=== PATIENT | male | born 1950 | race Caucasian/White ===

== ENCOUNTER 2017-05-01 10:34 | Outpatient (CLI) | payer MEDICARE ==
[2017-05-01 13:44] LABS: ALBUMIN/GLOBULIN RATIO 1.4 (1.0-2.2); BILIRUBIN,TOTAL 0.9 mg/dL (0.2-1.0); BUN - BLOOD UREA NITROGEN 21 mg/dL (6-20); CALCIUM 9.3 mg/dL (8.5-10.3); CARBON DIOXIDE - CO2 24 mmol/L (21-32); CHLORIDE 105 mmol/L (101-111); CHOL/HDL RATIO 4.1 (<5.0); CHOLESTEROL 189 mg/dL; CREATININE 1.1 mg/dL (0.6-1.2); GFR - MDRD 67 (>89); GLUCOSE 129 mg/dL (70-100); HDL CHOLESTEROL 46 mg/dL; LDL/HDL RATIO 1.5 (<3.6); SODIUM 138 mmol/L (135-145); TOTAL PROTEIN 6.8 g/dL (6.7-8.2); TRIGLYCERIDES 359 mg/dL; URIC ACID 5.6 mg/dL (2.6-7.2); VLDL CHOLESTEROL 72 mg/dL
[2017-05-01 14:16] LABS: HEMOGLOBIN A1C 0.69 g/dL
== END 2017-05-01 10:35 | disposition home or self-care (01) ==
LOC: LAB.WCP 10:34
PROVIDERS: ATTEND Family Medicine
DX: E79.0 Hyperuricemia without signs of inflammatory arthritis and tophaceous disease (principal); I10 Essential (primary) hypertension; R73.09 Other abnormal glucose
CPT/HCPCS: 36415; 80053; 80061; 82043; 83036; 84443; 84550

== ENCOUNTER 2017-12-05 08:00 | Outpatient (CLI) | payer MEDICARE ==
[2017-12-05 12:49] LABS: ALBUMIN 4.2 g/dL (3.2-5.5); ALBUMIN/GLOBULIN RATIO 1.6 (1.0-2.2); BILIRUBIN,TOTAL 0.8 mg/dL (0.2-1.0); CALCIUM 9.1 mg/dL (8.5-10.3); CREATININE 1.1 mg/dL (0.6-1.2); TOTAL PROTEIN 6.9 g/dL (6.7-8.2); URIC ACID 5.5 mg/dL (2.6-7.2)
[2017-12-05 12:56] LABS: HB2 TOTAL 16.4 g/dL; HEMOGLOBIN A1C 0.72 g/dL; HEMOGLOBIN A1C % 6.2 % (4.6-6.2)
== END 2017-12-05 08:01 | disposition home or self-care (01) ==
LOC: LAB.WCP 08:00
PROVIDERS: ATTEND Family Medicine
DX: E11.9 Type 2 diabetes mellitus without complications (principal); M25.561 Pain in right knee; E79.0 Hyperuricemia without signs of inflammatory arthritis and tophaceous disease; I10 Essential (primary) hypertension
CPT/HCPCS: 36415; 80053; 83036; 84550

== ENCOUNTER 2018-11-25 09:10 | Outpatient (CLI) | payer MEDICARE, OTHER ==
[2018-11-25 14:06] LABS: BASOPHILS % (AUTO) 0.7 %; EOSINOPHILS # (AUTO) 0.2 10^3/uL (0.0-0.7); EOSINOPHILS % (AUTO) 3.4 %; HGB - HEMOGLOBIN 14.8 g/dL (14.0-18.0); LYMPHOCYTES # (AUTO) 2.1 10^3/uL (1.5-3.5); LYMPHOCYTES % (AUTO) 30.9 %; MEAN CORPUSCULAR HEMOGLOBIN 30.5 pg (27.0-31.0); MEAN CORPUSCULAR HGB CONC 34.1 g/dL (32.0-36.0); MEAN CORPUSCULAR VOLUME 89.3 fL (80.0-94.0); MEAN PLATELET VOLUME 8.7 fL (7.4-11.4); MONOCYTES # (AUTO) 0.6 10^3/uL (0.0-1.0); MONOCYTES % (AUTO) 9.3 %; NEUTROPHILS # (AUTO) 3.7 10^3/uL (1.5-6.6); NEUTROPHILS % (AUTO) 55.7 %; PLT - PLATELET COUNT 198 10^3/uL (130-450); RED BLOOD COUNT 4.87 10^6/uL (4.70-6.10); RED CELL DISTRIBUTION WIDTH 14.4 % (12.0-15.0); WHITE BLOOD COUNT 6.7 x10^3/uL (4.8-10.8)
[2018-11-25 15:05] LABS: ALBUMIN 3.9 g/dL (3.2-5.5); ALBUMIN/GLOBULIN RATIO 1.3 (1.0-2.2); ALKALINE PHOSPHATASE 64 IU/L (42-121); ALT ALANINE AMINOTRANSFERASE 27 IU/L (10-60); AST ASPARTATE AMINOTRANSFERASE 28 IU/L (10-42); BILIRUBIN,TOTAL 0.8 mg/dL (0.2-1.0); BUN - BLOOD UREA NITROGEN 27 mg/dL (6-20); CALCIUM 9.1 mg/dL (8.5-10.3); CARBON DIOXIDE - CO2 26 mmol/L (21-32); CHLORIDE 100 mmol/L (101-111); CHOL/HDL RATIO 4.3 (<5.0); CHOLESTEROL 205 mg/dL; CREATININE 1.1 mg/dL (0.6-1.2); GFR - MDRD 67 (>89); GLUCOSE 133 mg/dL (70-100); HDL CHOLESTEROL 48 mg/dL; LDL CHOLESTEROL,CALCULATED 89 mg/dL; LDL/HDL RATIO 1.9 (<3.6); SODIUM 135 mmol/L (135-145); TOTAL PROTEIN 6.8 g/dL (6.7-8.2); VLDL CHOLESTEROL 68 mg/dL
== END 2018-11-25 23:59 | disposition home or self-care (01) ==
LOC: LAB.WCP 09:10
PROVIDERS: ATTEND Family Medicine
DX: I10 Essential (primary) hypertension (principal); Z12.5 Encounter for screening for malignant neoplasm of prostate
CPT/HCPCS: 36415; 80053; 80061; 83721; 84443; 85025; G0103; 84153

== ENCOUNTER 2019-02-19 11:50 | Outpatient (CLI) | payer MEDICARE, OTHER ==
[2019-02-19 18:43] LABS: BASOPHILS # (AUTO) 0.1 10^3/uL (0.0-0.1); BASOPHILS % (AUTO) 0.6 %; EOSINOPHILS # (AUTO) 0.1 10^3/uL (0.0-0.7); EOSINOPHILS % (AUTO) 1.2 %; HGB - HEMOGLOBIN 15.8 g/dL (14.0-18.0); LYMPHOCYTES # (AUTO) 2.3 10^3/uL (1.5-3.5); MEAN CORPUSCULAR HEMOGLOBIN 28.1 pg (27.0-31.0); MEAN CORPUSCULAR HGB CONC 31.7 g/dL (32.0-36.0); MEAN CORPUSCULAR VOLUME 88.6 fL (80.0-94.0); MEAN PLATELET VOLUME 8.8 fL (7.4-11.4); MONOCYTES # (AUTO) 0.7 10^3/uL (0.0-1.0); MONOCYTES % (AUTO) 8.2 %; NEUTROPHILS # (AUTO) 5.8 10^3/uL (1.5-6.6); PLT - PLATELET COUNT 230 10^3/uL (130-450); RED BLOOD COUNT 5.62 10^6/uL (4.70-6.10); RED CELL DISTRIBUTION WIDTH 14.5 % (12.0-15.0)
[2019-02-19 19:37] LABS: ALBUMIN 4.1 g/dL (3.2-5.5); ALBUMIN/GLOBULIN RATIO 1.5 (1.0-2.2); BILIRUBIN,TOTAL 1.2 mg/dL (0.2-1.0); CALCIUM 9.9 mg/dL (8.5-10.3); CREATININE 1.3 mg/dL (0.6-1.2); TOTAL PROTEIN 6.9 g/dL (6.7-8.2)
[2019-02-19 20:40] LABS: HB2 TOTAL 17.2 g/dL; HEMOGLOBIN A1C 0.79 g/dL; HEMOGLOBIN A1C % 6.4 % (4.6-6.2)
== END 2019-02-19 23:59 | disposition home or self-care (01) ==
LOC: LAB.WCP 11:50
PROVIDERS: ATTEND Family Medicine
DX: I10 Essential (primary) hypertension (principal); E11.9 Type 2 diabetes mellitus without complications
CPT/HCPCS: 36415; 80053; 83036; 84443; 85025

== ENCOUNTER 2019-04-12 06:33 | Day surgery (SDC) | payer MEDICARE, OTHER ==
[2019-04-12] MEDS ORDERED: LACTATED RINGERS 1,000 ML IV ONE (07:21)
[2019-04-12] MEDS ORDERED: MIDAZOLAM 2 MG/2 ML VIAL IVP ONE (08:00)
[2019-04-12] MEDS ORDERED: fentaNYL 250 MCG/5 ML VIAL IVP ONE (08:00)
[2019-04-12 09:12] VITALS: BP 140/81
== END 2019-04-12 06:34 | disposition home or self-care (01) ==
LOC: SDS 06:33
PROVIDERS: ATTEND Surgery
PROC: 0DJD8ZZ Inspection of Lower Intestinal Tract, Via Natural or Artificial Opening Endoscopic (ICD-10-PCS; principal; 2019-04-12 08:15)
DX: Z12.11 Encounter for screening for malignant neoplasm of colon (principal); K57.30 Diverticulosis of large intestine without perforation or abscess without bleeding; K64.4 Residual hemorrhoidal skin tags; K64.8 Other hemorrhoids; E11.9 Type 2 diabetes mellitus without complications; I10 Essential (primary) hypertension; E78.5 Hyperlipidemia, unspecified; E79.0 Hyperuricemia without signs of inflammatory arthritis and tophaceous disease; N28.9 Disorder of kidney and ureter, unspecified; M51.36 Other intervertebral disc degeneration, lumbar region; M19.042 Primary osteoarthritis, left hand; M19.041 Primary osteoarthritis, right hand; Z79.84 Long term (current) use of oral hypoglycemic drugs; Z79.82 Long term (current) use of aspirin; Z87.891 Personal history of nicotine dependence; Z87.442 Personal history of urinary calculi
CPT/HCPCS: G0121; J3010; J7120

== ENCOUNTER → 2019-07-19 | Outpatient (CLI) | payer MEDICARE, OTHER ==
[2019-07-19 12:45] LABS: BASOPHILS # (AUTO) 0.1 10^3/uL (0.0-0.1); BASOPHILS % (AUTO) 0.7 %; EOSINOPHILS # (AUTO) 0.3 10^3/uL (0.0-0.7); EOSINOPHILS % (AUTO) 3.4 %; HGB - HEMOGLOBIN 14.5 g/dL (14.0-18.0); LYMPHOCYTES # (AUTO) 2.2 10^3/uL (1.5-3.5); LYMPHOCYTES % (AUTO) 29.4 %; MEAN CORPUSCULAR HEMOGLOBIN 28.5 pg (27.0-31.0); MEAN CORPUSCULAR HGB CONC 31.7 g/dL (32.0-36.0); MEAN CORPUSCULAR VOLUME 89.8 fL (80.0-94.0); MONOCYTES # (AUTO) 0.7 10^3/uL (0.0-1.0); MONOCYTES % (AUTO) 9.9 %; NEUTROPHILS # (AUTO) 4.2 10^3/uL (1.5-6.6); NEUTROPHILS % (AUTO) 56.1 %; PLT - PLATELET COUNT 184 10^3/uL (130-450); RED BLOOD COUNT 5.09 10^6/uL (4.70-6.10); RED CELL DISTRIBUTION WIDTH 17.2 % (12.0-15.0); WHITE BLOOD COUNT 7.5 x10^3/uL (4.8-10.8)
[2019-07-19 12:48] LABS: ALBUMIN 4.1 g/dL (3.2-5.5); ALBUMIN/GLOBULIN RATIO 1.3 (1.0-2.2); ALKALINE PHOSPHATASE 61 IU/L (42-121); ALT ALANINE AMINOTRANSFERASE 25 IU/L (10-60); AST ASPARTATE AMINOTRANSFERASE 24 IU/L (10-42); BILIRUBIN,TOTAL 0.9 mg/dL (0.2-1.0); BUN - BLOOD UREA NITROGEN 25 mg/dL (6-20); CALCIUM 9.2 mg/dL (8.5-10.3); CARBON DIOXIDE - CO2 25 mmol/L (21-32); CHLORIDE 104 mmol/L (101-111); CHOL/HDL RATIO 3.8 (<5.0); CHOLESTEROL 192 mg/dL; CREATININE 1.2 mg/dL (0.6-1.2); GFR - MDRD 60 (>89); GLUCOSE 130 mg/dL (70-100); HDL CHOLESTEROL 50 mg/dL; LDL CHOLESTEROL,CALCULATED 83 mg/dL; LDL/HDL RATIO 1.7 (<3.6); SODIUM 138 mmol/L (135-145); TOTAL PROTEIN 7.2 g/dL (6.7-8.2); VLDL CHOLESTEROL 59 mg/dL
[2019-07-19 12:59] LABS: HB2 TOTAL 15.7 g/dL; HEMOGLOBIN A1C 0.71 g/dL; HEMOGLOBIN A1C % 6.3 % (4.6-6.2)
[2019-07-19 13:00] LABS: CREATININE,URINE 126.1 mg/dL; MICROALBUM/CREATININE RATIO,UR 38.1 ug/mg (<30.0); MICROALBUMIN,URINE 4.8 mg/dL (0-300.0)
== END ==
LOC: LAB.WCP 08:00
PROVIDERS: ATTEND Family Medicine
DX: E11.9 Type 2 diabetes mellitus without complications (principal); E78.5 Hyperlipidemia, unspecified
CPT/HCPCS: 36415; 80053; 80061; 82043; 82570; 83036; 83721; 84443; 85025

== ENCOUNTER 2019-09-28 09:00 | Outpatient (CLI) | payer MEDICARE, OTHER ==
[2019-09-28 14:35] LABS: BILIRUBIN,URINE NEGATIVE (NEGATIVE); GLUCOSE, URINE (UA) NEGATIVE (NEGATIVE); KETONES,URINE (UA) NEGATIVE (NEGATIVE); LEUKOCYTE ESTERASE, URINE NEGATIVE (NEGATIVE); NITRITE,URINE NEGATIVE (NEGATIVE); OCCULT BLOOD,URINE MODERATE (NEGATIVE); PH,URINE 5.5 PH (5.0-7.5); PROTEIN,URINE NEGATIVE (NEGATIVE); UROBILINOGEN,URINE 0.2 (NORMAL) E.U./dL (NORMAL)
[2019-09-28 14:43] LABS: CLARITY,URINE CLEAR (CLEAR)
[2019-09-28 14:47] LABS: BACTERIA,URINE Rare /HPF (None Seen); RBC,URINE 0-5 /HPF (0-5); SQUAMOUS EPITHELIAL CELL,UR NONE SEEN (<= Few)
== END 2019-09-28 23:59 | disposition home or self-care (01) ==
LOC: LAB.R 09:00
PROVIDERS: ATTEND Physician Assistant
DX: R10.32 Left lower quadrant pain (principal)
CPT/HCPCS: 81001; 81003; 87086

== ENCOUNTER 2019-09-28 12:12 | Outpatient (CLI) | payer MEDICARE, OTHER ==
[2019-09-28 12:39] LABS: BASOPHILS # (AUTO) 0.1 10^3/uL (0.0-0.1); BASOPHILS % (AUTO) 0.5 %; EOSINOPHILS # (AUTO) 0.1 10^3/uL (0.0-0.7); EOSINOPHILS % (AUTO) 1.1 %; HGB - HEMOGLOBIN 14.8 g/dL (14.0-18.0); LYMPHOCYTES # (AUTO) 1.7 10^3/uL (1.5-3.5); LYMPHOCYTES % (AUTO) 16.2 %; MEAN CORPUSCULAR HEMOGLOBIN 30.9 pg (27.0-31.0); MEAN CORPUSCULAR HGB CONC 33.5 g/dL (32.0-36.0); MEAN CORPUSCULAR VOLUME 92.3 fL (80.0-94.0); MEAN PLATELET VOLUME 9.7 fL (7.4-11.4); MONOCYTES % (AUTO) 9.1 %; NEUTROPHILS # (AUTO) 7.7 10^3/uL (1.5-6.6); NEUTROPHILS % (AUTO) 72.5 %; PLT - PLATELET COUNT 191 10^3/uL (130-450); RED BLOOD COUNT 4.79 10^6/uL (4.70-6.10); RED CELL DISTRIBUTION WIDTH 12.8 % (12.0-15.0); WHITE BLOOD COUNT 10.6 x10^3/uL (4.8-10.8)
[2019-09-28 12:47] LABS: ALBUMIN 4.1 g/dL (3.2-5.5); ALBUMIN/GLOBULIN RATIO 1.2 (1.0-2.2); BILIRUBIN,TOTAL 1.2 mg/dL (0.2-1.0); CALCIUM 9.3 mg/dL (8.5-10.3); CREATININE 1.2 mg/dL (0.6-1.2); TOTAL PROTEIN 7.4 g/dL (6.7-8.2)
[2019-09-28] MEDS ORDERED: IOVERSOL 320 50 ML VIAL ONE (13:00)
[2019-09-28] MEDS ORDERED: IOVERSOL 320 100 ML VIAL IVP ONE ×2 (13:00→17:00)
--- NOTE | 2019-09-28 14:40 | CT Report ---
Reason: ABDOMINAL PAIN Procedure Date: 09/28/2019 Accession Number: [id number] / [id number] Procedure: CT - Abdomen/Pelvis W CPT Code: Addended Final Report FULL RESULT: EXAM: CT ABDOMEN AND PELVIS EXAM DATE: 09/28/2019 01:49 PM. CLINICAL HISTORY: ABDOMINAL PAIN. Left lower quadrant abdominal pain, concern for diverticulitis versus nephrolithiasis. COMPARISONS: CT ABD AND PELVIS W&WO CONTRAST 02/26/2013 11:43 AM. TECHNIQUE: Routine helical CT imaging was performed through the abdomen and pelvis. IV contrast: OPTI 320 100ML. Enteric contrast: No. Reconstructions: Coronal and sagittal. In accordance with CT protocol optimization, one or more of the following dose reduction techniques were utilized for this exam: automated exposure control, adjustment of mA and/or KV based on patient size, or use of iterative reconstructive technique. FINDINGS: Lung Bases: Unremarkable. Liver: There is diffuse low-attenuation of the liver. No masses. Gallbladder/Bile Ducts: Unremarkable. Spleen: Normal. Pancreas: Normal. Adrenal Glands: Normal. Kidneys: There is a large exophytic cyst at the inferolateral aspect of the right kidney which measures 14.9 x 11.4 x 12.5 cm (series 3 image 49, and series 5 image 30), previously 5.2 x 4.1 x 4.8 cm on 02/26/2013. No solid enhancing component or calcification identified. There are small right parapelvic cysts. No enhancing renal mass or hydronephrosis identified. There are several left renal cortical cysts at the interpolar region and superior pole which have increased in size compared to 02/26/2013. The largest at the superior pole measures 4.8 x 4.3 x 4.6 cm (series 3 image 35, and series 5 image 44), previously 2.5 x 2.4 x 2.8 cm. No solid enhancing mass or hydronephrosis identified. There are probable small parapelvic cysts. No renal collecting system calculi identified bilaterally. Peritoneal Cavity/Bowel: No free fluid, free air or adenopathy. No dilated loops of bowel or abnormal colonic stool burden. There is mild diverticulosis of the transverse colon, descending colon, and sigmoid colon. There is a short segment of circumferential bowel wall thickening with adjacent fat stranding in the proximal sigmoid colon, consistent with acute diverticulitis. No evidence of perforation or abscess formation.. The appendix is well visualized and normal. Pelvic Organs: Normal. The bladder and visualized pelvic organs are within normal limits. Vasculature: There is mild atherosclerotic calcification of the abdominal aorta and bilateral common iliac arteries. No aneurysms or other significant abnormality. Bones: No fracture or bone lesion. There are moderate degenerative disk changes of the lower lumbar spine. Other: There is a small fat-containing right inguinal hernia. IMPRESSION: 1. Acute diverticulitis of the proximal sigmoid colon. No evidence of perforation or abscess formation. 2. No hydronephrosis or renal collecting system calculi identified. 3. Bilateral simple renal cortical cysts are increased in size compared to 02/26/2013. There is a large exophytic simple cyst at the inferior pole of the right kidney measuring up to 14.9 cm. No solid enhancing renal mass identified. 4. Diffuse fatty infiltration of the liver. [facility] The call report notification system was initiated by Dr. Bonifacio Michaels at 02:36 PM on 09/28/2019. ADDENDUM: 09/28/19 14:55 The above call report findings of acute diverticulitis were discussed with MICHAEL Erickson by Dr. Bonifacio Michaels at 02:55 PM on 09/28/2019.
== END 2019-09-28 12:13 | disposition home or self-care (01) ==
LOC: LAB 12:12 → DI 12:13
PROVIDERS: ATTEND Physician Assistant
DX: K57.32 Diverticulitis of large intestine without perforation or abscess without bleeding (principal); Q61.02 Congenital multiple renal cysts; K76.0 Fatty (change of) liver, not elsewhere classified
CPT/HCPCS: 36415; 74177; 80053; 85025; Q9967

== ENCOUNTER 2020-03-20 08:00 | Outpatient (CLI) | payer MEDICARE, OTHER ==
[2020-03-20 13:06] LABS: BASOPHILS # (AUTO) 0.1 10^3/uL (0.0-0.1); BASOPHILS % (AUTO) 0.7 %; EOSINOPHILS # (AUTO) 0.2 10^3/uL (0.0-0.7); EOSINOPHILS % (AUTO) 2.7 %; HGB - HEMOGLOBIN 14.6 g/dL (14.0-18.0); LYMPHOCYTES # (AUTO) 2.1 10^3/uL (1.5-3.5); LYMPHOCYTES % (AUTO) 30.6 %; MEAN CORPUSCULAR HEMOGLOBIN 30.5 pg (27.0-31.0); MEAN CORPUSCULAR HGB CONC 32.8 g/dL (32.0-36.0); MEAN CORPUSCULAR VOLUME 93.1 fL (80.0-94.0); MEAN PLATELET VOLUME 10.8 fL (7.4-11.4); MONOCYTES # (AUTO) 0.7 10^3/uL (0.0-1.0); MONOCYTES % (AUTO) 9.7 %; NEUTROPHILS # (AUTO) 3.8 10^3/uL (1.5-6.6); NEUTROPHILS % (AUTO) 55.9 %; PLT - PLATELET COUNT 182 10^3/uL (130-450); RED BLOOD COUNT 4.78 10^6/uL (4.70-6.10); RED CELL DISTRIBUTION WIDTH 13.8 % (12.0-15.0); WHITE BLOOD COUNT 6.7 x10^3/uL (4.8-10.8)
[2020-03-20 13:21] LABS: ALBUMIN/GLOBULIN RATIO 1.4 (1.0-2.2); BILIRUBIN,TOTAL 0.7 mg/dL (0.2-1.0); CALCIUM 9.4 mg/dL (8.5-10.3); CREATININE 1.2 mg/dL (0.6-1.2); TOTAL PROTEIN 6.8 g/dL (6.7-8.2)
[2020-03-20 13:22] LABS: HB2 TOTAL 14.9 g/dL; HEMOGLOBIN A1C 0.72 g/dL; HEMOGLOBIN A1C % 6.6 % (4.6-6.2)
[2020-03-20 13:29] LABS: CREATININE,URINE 145.4 mg/dL; MICROALBUM/CREATININE RATIO,UR 24.8 ug/mg (<30.0); MICROALBUMIN,URINE 3.6 mg/dL (0-300.0)
== END 2020-03-20 23:59 | disposition home or self-care (01) ==
LOC: LAB.WCP 08:00
PROVIDERS: ATTEND Family Medicine
DX: G57.12 Meralgia paresthetica, left lower limb (principal); E11.9 Type 2 diabetes mellitus without complications; I10 Essential (primary) hypertension
CPT/HCPCS: 36415; 80053; 82043; 82570; 83036; 84443; 85025

== ENCOUNTER 2020-08-10 08:20 | Outpatient (CLI) | payer MEDICARE ==
[2020-08-10 11:44] LABS: CALCIUM 9.5 mg/dL (8.5-10.3); CREATININE 1.4 mg/dL (0.6-1.2)
[2020-08-10 12:27] LABS: CREATININE,URINE 141.4 mg/dL; MICROALBUMIN,URINE 3.4 mg/dL (0-300.0)
[2020-08-10 12:45] LABS: HEMOGLOBIN A1c% 6.8 % (4.27-6.07)
== END 2020-08-10 23:59 | disposition home or self-care (01) ==
LOC: LAB.WCP 08:20
PROVIDERS: ATTEND Family Medicine
DX: R73.01 Impaired fasting glucose (principal)
CPT/HCPCS: 36415; 80048; 82043; 82570; 83036

== ENCOUNTER 2020-10-04 12:42 | Outpatient (CLI) | payer MEDICARE ==
--- NOTE | 2020-10-04 14:23 | MRI Report ---
PROCEDURE: Lumbar Spine W/O INDICATIONS: NUMBNESS OF LEFT FOOT TECHNIQUE: Noncontrast sagittal T1 spin echo and T2 fast echo, sagittal STIR, axial T1 and T2 fast spin echo thr ough the lumbar spine. In cases with scoliosis, additional coronal T2 fast spin echo may be performe d. COMPARISON: CT examination dated 09.28.19 FINDINGS: Image quality: Excellent. Alignment and Curvature: 5 lumbar type vertebral bodies are present by CT. There is loss of normal jakub mbar lordosis. There is mild grade 1 retrolisthesis of L4 on L5. Bone Marrow: Marrow is of normal overall signal. No acute vertebral body compression fractures. Mo derate reactive signal within the endplates adjacent to the L2-L3, L3-L4, and L4-L5 intervertebral di scs. Spinal Cord: Conus medullaris terminates at the mid L1 level. Visualized cord demonstrates normal s ignal and size. Paraspinous Soft Tissues: No paravertebral masses. Incompletely visualized right renal cyst measuri ng at least 13 cm diameter. T12-L1: Moderate disc desiccation. No significant canal, nor foraminal stenosis. L1-L2: Moderate disc desiccation. No significant canal, nor foraminal stenosis. L2-L3: Mild disc height loss. Moderate disc desiccation. Mild diffuse disc bulge. Mild facet and l igament flavum hypertrophy. Mild epidural lipomatosis. Mild canal stenosis. Moderate subarticular for aminal stenosis bilaterally. L3-L4: Moderate disc height loss and desiccation. Mild facet and ligament flavum hypertrophy. Mild canal stenosis. Moderate subarticular foraminal stenosis bilaterally. L4-L5: Severe disc height loss and desiccation. Mild facet and ligament flavum hypertrophy. Mild ca nal stenosis. Moderate subarticular foraminal stenosis bilaterally. L5-S1: Moderate disc desiccation. Mild disc height loss. Mild bilateral facet hypertrophy. Mild can al stenosis. Mild bilateral foraminal stenosis. IMPRESSION: 1. Multilevel degenerative disc and facet disease, in addition to epidural lipomatosis and ligamentum flavum hypertrophy. 2. Mild multilevel canal stenoses. 3. Multilevel foraminal stenoses, worst at L2-L3, L3-L4, and L4-L5, where there are moderate foramina l stenoses. Reviewed by: Hermilo Cantu MD on 10/04/2020 2:22 PM PST Approved by: Hermilo Cantu MD on 10/04/2020 2:22 PM PST Station ID: [id number]
== END 2020-10-04 12:43 | disposition home or self-care (01) ==
LOC: DI 12:42
PROVIDERS: ATTEND Neuromusculoskeletal Medicine, Sports Medicine
DX: M51.36 Other intervertebral disc degeneration, lumbar region (principal); M48.061 Spinal stenosis, lumbar region without neurogenic claudication
CPT/HCPCS: 72148

== ENCOUNTER 2020-10-16 08:00 | Outpatient (CLI) | payer MEDICARE ==
[2020-10-16 18:17] LABS: BASOPHILS % (AUTO) 0.5 %; EOSINOPHILS # (AUTO) 0.1 10^3/uL (0.0-0.7); EOSINOPHILS % (AUTO) 1.2 %; HGB - HEMOGLOBIN 14.7 g/dL (14.0-18.0); LYMPHOCYTES # (AUTO) 2.2 10^3/uL (1.5-3.5); LYMPHOCYTES % (AUTO) 26.2 %; MEAN CORPUSCULAR HEMOGLOBIN 30.2 pg (27.0-31.0); MEAN CORPUSCULAR HGB CONC 31.9 g/dL (32.0-36.0); MEAN CORPUSCULAR VOLUME 94.7 fL (80.0-94.0); MEAN PLATELET VOLUME 10.5 fL (7.4-11.4); MONOCYTES # (AUTO) 0.8 10^3/uL (0.0-1.0); MONOCYTES % (AUTO) 9.2 %; NEUTROPHILS # (AUTO) 5.3 10^3/uL (1.5-6.6); NEUTROPHILS % (AUTO) 62.4 %; PLT - PLATELET COUNT 210 10^3/uL (130-450); RED BLOOD COUNT 4.87 10^6/uL (4.70-6.10); RED CELL DISTRIBUTION WIDTH 13.3 % (12.0-15.0); WHITE BLOOD COUNT 8.5 x10^3/uL (4.8-10.8)
[2020-10-16 19:15] LABS: ALBUMIN 4.1 g/dL (3.2-5.5); ALBUMIN/GLOBULIN RATIO 1.2 (1.0-2.2); CALCIUM 9.5 mg/dL (8.5-10.3); CREATININE 1.5 mg/dL (0.6-1.2); TOTAL PROTEIN 7.4 g/dL (6.7-8.2)
== END 2020-10-16 23:59 | disposition home or self-care (01) ==
LOC: LAB.N 08:00
PROVIDERS: ATTEND Nurse Practitioner
DX: R10.11 Right upper quadrant pain (principal)
CPT/HCPCS: 36415; 80053; 82150; 83690; 85025

== ENCOUNTER 2020-10-16 11:45 | Outpatient (CLI) | payer MEDICARE ==
[2020-10-16 19:04] LABS: BILIRUBIN,URINE NEGATIVE (NEGATIVE); GLUCOSE, URINE (UA) NEGATIVE (NEGATIVE); KETONES,URINE (UA) NEGATIVE (NEGATIVE); LEUKOCYTE ESTERASE, URINE NEGATIVE (NEGATIVE); NITRITE,URINE NEGATIVE (NEGATIVE); OCCULT BLOOD,URINE SMALL (NEGATIVE); PH,URINE 5.5 PH (5.0-7.5); PROTEIN,URINE NEGATIVE (NEGATIVE); UROBILINOGEN,URINE 0.2 (NORMAL) E.U./dL (NORMAL)
[2020-10-16 19:08] LABS: CLARITY,URINE CLEAR (CLEAR)
[2020-10-16 19:54] LABS: BACTERIA,URINE Rare /HPF (None Seen); RBC,URINE 0-5 /HPF (0-5); SQUAMOUS EPITHELIAL CELL,UR NONE SEEN (<= Few)
== END 2020-10-16 23:59 | disposition home or self-care (01) ==
LOC: LAB.R 11:45
PROVIDERS: ATTEND Nurse Practitioner
DX: R10.11 Right upper quadrant pain (principal)
CPT/HCPCS: 81001; 87086

== ENCOUNTER 2020-10-30 07:13 | Outpatient (CLI) | payer MEDICARE ==
--- NOTE | 2020-10-30 12:02 | Ultrasound Report ---
PROCEDURE: Abdomen Complete INDICATIONS: RT UPPER QUAD PAIN TECHNIQUE: Real-time scanning was performed of the abdominal and retroperitoneal organs, with image documentatio n. COMPARISON: Correlation made to CT abdomen pelvis 09/28/2019 04/03/2011. FINDINGS: Liver: Liver is mildly elongated measuring 19.4 cm in length and homogeneously hyperechoic, and dens e in echotexture. Trace relative hypoechogenicity in the gallbladder fossa. Gallbladder: The gallbladder is normal without stones or sludge. Normal wall thickness at 1.6 mm. No pericholecystic fluid or sonographic Cummings sign. Biliary ducts: Intrahepatic bile ducts are non-dilated. Extrahepatic bile duct caliber measures 7 m m. Normal is 6-7 mm or less in diameter, or 10 mm or less post-cholecystectomy. Pancreas: Visualized portions of the pancreas are sonographically normal. Spleen: Spleen is normal in size and homogeneous in echotexture. Kidneys: Kidneys are normal in size and echotexture. Right kidney measures 13.1 cm long; left kidne y measures 13.5 cm long. No hydronephrosis or nephrolithiasis. No solid masses. There are several simple cysts in the left kidney, the largest measuring 5.3 cm. There is a large cys tic mass arising from the right kidney measuring 18.6 x 17.7 x 13.9 cm. Internally, the fluid is diff usely complex with polypoid soft tissue nodularity along the wall. No detectable vascularity. Aorta: Visualized aorta is normal in caliber at less than 3 cm. Iliacs: Not seen due to bowel gas. IVC: Intrahepatic inferior vena cava is patent. Miscellaneous: No free abdominal fluid. IMPRESSION: 1. Interval increase in size of complex right renal cystic mass compared to the most recent prior CT where it measured approximately 12.9 x 11.9 x 15.1 cm. If there has been acute intracystic hemorrhage , this may be symptomatic. 2. Normal gallbladder. 3. Mild hepatomegaly and hepatic steatosis. Reviewed by: Emily Birmingham MD on 10/30/2020 12:01 PM PST Approved by: Emily Birmingham MD on 10/30/2020 12:01 PM PST Station ID: [id number]
== END 2020-10-30 07:14 | disposition home or self-care (01) ==
LOC: DI 07:13
PROVIDERS: ATTEND Internal Medicine
DX: R10.11 Right upper quadrant pain (principal); N28.89 Other specified disorders of kidney and ureter; K76.0 Fatty (change of) liver, not elsewhere classified

== ENCOUNTER 2020-12-20 11:28 | Outpatient (CLI) | payer MEDICARE ==
[2020-12-20] MEDS ORDERED: IOVERSOL 320 100 ML VIAL IVP ONE ×2 (11:46→13:20)
[2020-12-20 12:24] LABS: CREATININE 1.7 mg/dL (0.6-1.2)
--- NOTE | 2020-12-20 14:28 | CT Report ---
PROCEDURE: ABDOMEN W/WO INDICATIONS: RENAL LESION CONTRAST: Intravenous contrast only TECHNIQUE: 4 phase scanning was performed. After the administration of intravenous contrast, 5 mm thick section s acquired from the diaphragm to the symphysis. 5 mm coronal and sagittal reformats were acquired. For radiation dose reduction, the following was used: automated exposure control, adjustment of mA a nd/or kV according to patient size. COMPARISON: None. FINDINGS: Image quality: Excellent. Lung bases: Lung bases are clear. Heart size is normal. Moderately advanced coronary artery calcifi cations. Kidneys: Again noted is a very large cyst off the lower pole of the right kidney. This has continued to increase in size, most recently measuring 12.6 x 14.5 x 12.3 cm and currently measuring 17.3 x 16 .0 x 19.0 cm. It has a water Hounsfield density measurement and does not enhance on arterial phase or delayed phase imaging. No suspicious renal masses. Numerous left renal cysts. Other solid organs: Liver: Unremarkable. No liver masses. Gallbladder is unremarkable. Biliary syst em is non dilated. Pancreas is normal in morphology. Spleen is normal in size and enhancement. No adrenal nodules. Nodes and vessels: No retroperitoneal or mesenteric adenopathy by size criteria. Aorta and inferior vena cava are normal in size. Bowel and peritoneum: Unenhanced bowel loops are normal in caliber. No free fluid or air. Mild rig ht colonic diverticulosis. Bones: No suspicious bony lesions. No vertebral body compression fractures. Miscellaneous: No ventral hernias. IMPRESSION: 1. Continued interval growth of a very large exophytic cyst off the right kidney. It is a nonenhancin g lesion and is not suspicious for malignancy. 2. Coronary artery disease. Comment: If this patient has right-sided abdominal pain, presumed secondary to this renal cystic lesi on, it may potentially be aspirated under CT guidance. If aspiration improves patient symptomatology, but the symptoms recur, the cyst may potentially be treatable utilizing CT-guided cyst ablation. Reviewed by: Abdi Michelle MD on 12/20/2020 2:26 PM PST Approved by: Abdi Michelle MD on 12/20/2020 2:26 PM PST Station ID: [id number]
== END 2020-12-20 11:29 | disposition home or self-care (01) ==
LOC: LAB 11:28 → DI 11:29
PROVIDERS: ATTEND Urology
DX: N28.1 Cyst of kidney, acquired (principal); N28.9 Disorder of kidney and ureter, unspecified; I25.10 Atherosclerotic heart disease of native coronary artery without angina pectoris
CPT/HCPCS: 36415; 74170; 82565; 84520; Q9967

== ENCOUNTER 2021-07-06 09:07 | Outpatient (CLI) | payer MEDICARE | END 2021-07-06 09:08 | disposition home or self-care (01) | LOC: DI.N 09:07 | PROVIDERS: ATTEND Family Medicine | DX: R00.0 Tachycardia, unspecified (principal) | CPT/HCPCS: 36415; 80053; 80061; 83721; 84443; 85025 ==

== ENCOUNTER 2021-07-06 09:15 | Outpatient (CLI) | payer MEDICARE ==
[2021-07-06 11:59] LABS: BASOPHILS % (AUTO) 0.7 %; EOSINOPHILS # (AUTO) 0.3 10^3/uL (0.0-0.7); EOSINOPHILS % (AUTO) 4.3 %; HCT - HEMATOCRIT 44.7 % (42.0-52.0); HGB - HEMOGLOBIN 14.7 g/dL (14.0-18.0); LYMPHOCYTES % (AUTO) 32.4 %; MEAN CORPUSCULAR HEMOGLOBIN 30.7 pg (27.0-31.0); MEAN CORPUSCULAR HGB CONC 32.9 g/dL (32.0-36.0); MEAN CORPUSCULAR VOLUME 93.3 fL (80.0-94.0); MEAN PLATELET VOLUME 10.6 fL (7.4-11.4); MONOCYTES # (AUTO) 0.7 10^3/uL (0.0-1.0); NEUTROPHILS # (AUTO) 3.1 10^3/uL (1.5-6.6); NEUTROPHILS % (AUTO) 51.3 %; PLT - PLATELET COUNT 191 10^3/uL (130-450); RED BLOOD COUNT 4.79 10^6/uL (4.70-6.10); RED CELL DISTRIBUTION WIDTH 13.6 % (12.0-15.0)
[2021-07-06 12:17] LABS: ALBUMIN 4.2 g/dL (3.2-5.5); ALBUMIN/GLOBULIN RATIO 1.5 (1.0-2.2); ALKALINE PHOSPHATASE 65 IU/L (42-121); ALT ALANINE AMINOTRANSFERASE 30 IU/L (10-60); AST ASPARTATE AMINOTRANSFERASE 26 IU/L (10-42); BILIRUBIN,TOTAL 0.9 mg/dL (0.2-1.0); BUN - BLOOD UREA NITROGEN 30 mg/dL (6-20); CALCIUM 9.7 mg/dL (8.5-10.3); CARBON DIOXIDE - CO2 27 mmol/L (21-32); CHLORIDE 104 mmol/L (101-111); CHOLESTEROL 226 mg/dL; CREATININE 1.3 mg/dL (0.6-1.2); GFR - MDRD 55 (>89); GLUCOSE 152 mg/dL (70-100); HDL CHOLESTEROL 45 mg/dL; LDL CHOLESTEROL,CALCULATED 108 mg/dL; LDL/HDL RATIO 2.4 (<3.6); POTASSIUM 4.2 mmol/L (3.5-5.0); SODIUM 142 mmol/L (135-145); TRIGLYCERIDES 366 mg/dL; VLDL CHOLESTEROL 73 mg/dL
[2021-07-06 12:36] LABS: THYROID STIMULATING HORMONE 1.52 uIU/mL (0.34-5.60)
== END 2021-07-06 09:16 | disposition home or self-care (01) ==
LOC: LAB.N 09:15
PROVIDERS: ATTEND Family Medicine
DX: R00.0 Tachycardia, unspecified (principal)
CPT/HCPCS: 36415; 80053; 80061; 83721; 84443; 85025

== ENCOUNTER 2021-07-06 09:19 | Outpatient (CLI) | payer MEDICARE | END 2021-07-06 09:20 | disposition home or self-care (01) | LOC: LAB.N 09:19 | PROVIDERS: ATTEND Family Medicine | DX: R00.0 Tachycardia, unspecified (principal) ==

== ENCOUNTER 2021-07-06 09:30 | Outpatient (CLI) | payer MEDICARE ==
--- NOTE | 2021-07-06 13:14 | XRAY Report ---
PROCEDURE: Knee 2 View RT INDICATIONS: KNEE PAIN, RIGHT TECHNIQUE: 2 views of the right knee(s) were acquired. COMPARISON: None. FINDINGS: Bones: There is medial joint space narrowing and tricompartmental osteophytes. No fractures or dislo cations. No suspicious bony lesions. Soft tissues: No joint effusion. No suspicious soft tissue calcifications. IMPRESSION: Tricompartmental degenerative changes and medial joint space narrowing consistent with o steoarthritis. Reviewed by: Scooby Lowe on 07/06/2021 1:13 PM PDT Approved by: Scooby Lowe on 07/06/2021 1:13 PM PDT Station ID: [id number]
== END 2021-07-06 23:59 | disposition home or self-care (01) ==
LOC: DI.N 09:30
PROVIDERS: ATTEND Family Medicine
DX: M17.11 Unilateral primary osteoarthritis, right knee (principal)

== ENCOUNTER 2021-08-15 08:23 | Outpatient (CLI) | payer MEDICARE ==
[2021-08-15] MEDS ORDERED: IOPAMIDOL-300 100 ML VIAL ONE (08:30)
[2021-08-15 08:58] LABS: CREATININE 1.3 mg/dL (0.6-1.2)
[2021-08-15] MEDS ORDERED: IOPAMIDOL-300 100 ML VIAL IVP ONE (09:34)
--- NOTE | 2021-08-15 10:03 | CT Report ---
PROCEDURE: ABDOMEN W/WO INDICATIONS: History of renal cell carcinoma TECHNIQUE: Noncontrast 5 mm thick sections acquired from the diaphragms to the symphysis. 5 mm coronal and sagi ttal reformats were then performed in the arterial and venous phases. For radiation dose reduction, t he following was used: automated exposure control, adjustment of mA and/or kV according to patient s ize. COMPARISON: 12/20/2020 FINDINGS: Image quality: Excellent. Lung bases: Lung bases are clear. Heart size is normal. Kidneys: Changes of right partial nephrectomy. No suspicious renal enhancement identified. Multiple l ow density left renal cysts are similar. No hydronephrosis or hydroureter. Solid organs: Hepatic steatosis. Liver and spleen are otherwise normal in size and enhancement. Gall bladder is normal. Biliary system is non dilated. Pancreas enhances normally. No adrenal gland nodu le or mass. Peritoneum and bowel: Unenhanced bowel loops are normal in caliber and wall thickness. No free flui d or air. Nodes and vessels: No retroperitoneal or mesenteric adenopathy by size criteria. Aorta and inferior vena cava are normal in size. Miscellaneous: No ventral hernias. Bones: No suspicious bony lesions. No vertebral body compression fractures. IMPRESSION: Changes of partial right nephrectomy. No suspicious renal enhancement to suggest a neoplasm. Reviewed by: Reid Man MD on 08/15/2021 10:02 AM PDT Approved by: Reid Man MD on 08/15/2021 10:02 AM PDT Station ID: [id number]
== END 2021-08-15 08:24 | disposition home or self-care (01) ==
LOC: LAB 08:23
PROVIDERS: ATTEND Urology
DX: Z85.528 Personal history of other malignant neoplasm of kidney (principal); Z90.5 Acquired absence of kidney
CPT/HCPCS: 36415; 74170; 82565; Q9967

== ENCOUNTER 2021-09-13 08:55 | Outpatient (CLI) | payer MEDICARE ==
--- NOTE | 2021-09-14 08:41 | XRAY Report ---
PROCEDURE: Cervical Spine 2 View INDICATIONS: ATRAUMATIC NECK PAIN AFTER POPPING NECK TECHNIQUE: 4 view(s) of the cervical spine were acquired. COMPARISON: None. FINDINGS: Bones: No fractures or dislocations to the T1 level. The lateral masses of C1 appear intact on the odontoid view. The odontoid process was incompletely visualized. There is straightening of the normal cervical lordosis. No subluxation. Severe disc height loss at C4-5, C5-6, and C6-7. Mild posterior a nd moderate anterior endplate spurs at these levels. Sclerotic changes in the endplates and facet wenceslao nts at multiple levels. No suspicious bony lesions. Soft tissues: No prevertebral soft tissue swelling. IMPRESSION: 1. No radiographic evidence of acute cervical spine trauma. 2. Severe disc degeneration at the mid cervical spine with mild to moderate degenerative endplate cameron nges. Reviewed by: Emily Birmingham MD on 09/14/2021 8:39 AM PDT Approved by: Emily Birmingham MD on 09/14/2021 8:39 AM PDT Station ID: [id number]
== END 2021-09-13 23:59 ==
LOC: DI.N 08:55
PROVIDERS: ATTEND Physician Assistant Medical
DX: M47.812 Spondylosis without myelopathy or radiculopathy, cervical region (principal); M50.321 Other cervical disc degeneration at C4-C5 level

== ENCOUNTER 2021-11-02 13:04 | Outpatient (CLI) | payer MEDICARE | END 2021-11-02 23:59 | disposition home or self-care (01) | LOC: LAB.N 13:04 | PROVIDERS: ATTEND Family Medicine | DX: L03.116 Cellulitis of left lower limb (principal) | CPT/HCPCS: 87070; 87077; 87181; 87205 ==

== ENCOUNTER 2021-11-12 09:08 | Outpatient (CLI) | payer MEDICARE ==
--- NOTE | 2021-11-12 16:29 | XRAY Report ---
PROCEDURE: Tib/Fib LT INDICATIONS: CELLULITIS OF L LOWER LIMB TECHNIQUE: 2 views of the tibia and fibula were acquired. COMPARISON: None FINDINGS: Bones: No fractures or dislocations. No suspicious bony lesions. Soft tissues: No suspicious soft tissue calcifications or masses. IMPRESSION: No acute fracture. No osseous lesion. If symptoms and/or clinical suspicion for pathology continue, f urther assessment with repeat plain films, or advanced imaging (e.g., CT, MRI, or bone scan) is recom mended for further assessment. Reviewed by: Hermilo Canut MD on 11/12/2021 4:28 PM PST Approved by: Hermilo Cantu MD on 11/12/2021 4:28 PM PST Station ID: [id number]
== END 2021-11-12 23:59 | disposition home or self-care (01) ==
LOC: DI.N 09:08
PROVIDERS: ATTEND Nurse Practitioner
DX: L03.116 Cellulitis of left lower limb (principal)

== ENCOUNTER 2021-11-27 08:00 | Outpatient (CLI) | payer MEDICARE | END 2021-11-27 23:59 | disposition home or self-care (01) | LOC: LAB.WCP 08:00 | PROVIDERS: ATTEND Family Medicine | DX: L03.116 Cellulitis of left lower limb (principal) | CPT/HCPCS: 87070; 87205 ==

== ENCOUNTER 2021-12-03 12:07 | Outpatient (CLI) | payer MEDICARE | END 2021-12-03 12:08 | disposition short-term general hospital (02) | LOC: EMS 12:07 | DX: R07.9 Chest pain, unspecified (principal) | CPT/HCPCS: A0425; A0433 ==

== ENCOUNTER 2021-12-17 07:00 | Outpatient (CLI) | payer MEDICARE ==
[2021-12-17 12:04] LABS: BASOPHILS # (AUTO) 0.1 10^3/uL (0.0-0.1); BASOPHILS % (AUTO) 0.8 %; EOSINOPHILS # (AUTO) 0.2 10^3/uL (0.0-0.7); EOSINOPHILS % (AUTO) 2.8 %; HCT - HEMATOCRIT 42.8 % (42.0-52.0); HGB - HEMOGLOBIN 13.9 g/dL (14.0-18.0); LYMPHOCYTES % (AUTO) 24.4 %; MEAN CORPUSCULAR HGB CONC 32.5 g/dL (32.0-36.0); MEAN CORPUSCULAR VOLUME 92.4 fL (80.0-94.0); MEAN PLATELET VOLUME 10.2 fL (7.4-11.4); MONOCYTES # (AUTO) 0.6 10^3/uL (0.0-1.0); MONOCYTES % (AUTO) 7.4 %; NEUTROPHILS # (AUTO) 5.1 10^3/uL (1.5-6.6); NEUTROPHILS % (AUTO) 64.2 %; PLT - PLATELET COUNT 261 10^3/uL (130-450); RED BLOOD COUNT 4.63 10^6/uL (4.70-6.10); RED CELL DISTRIBUTION WIDTH 13.6 % (12.0-15.0)
[2021-12-17 12:20] LABS: ALBUMIN 3.8 g/dL (3.2-5.5); ALBUMIN/GLOBULIN RATIO 1.2 (1.0-2.2); ALKALINE PHOSPHATASE 74 IU/L (42-121); ALT ALANINE AMINOTRANSFERASE 32 IU/L (10-60); AST ASPARTATE AMINOTRANSFERASE 24 IU/L (10-42); BILIRUBIN,TOTAL 0.8 mg/dL (0.2-1.0); BUN - BLOOD UREA NITROGEN 29 mg/dL (6-20); CALCIUM 9.3 mg/dL (8.5-10.3); CARBON DIOXIDE - CO2 24 mmol/L (21-32); CHLORIDE 104 mmol/L (101-111); CHOL/HDL RATIO 3.2 (<5.0); CHOLESTEROL 140 mg/dL; CREATININE 1.3 mg/dL (0.6-1.2); GFR - MDRD 55 (>89); GLUCOSE 168 mg/dL (70-100); HDL CHOLESTEROL 44 mg/dL; LDL CHOLESTEROL,CALCULATED 50 mg/dL; LDL/HDL RATIO 1.1 (<3.6); POTASSIUM 4.2 mmol/L (3.5-5.0); SODIUM 138 mmol/L (135-145); TRIGLYCERIDES 232 mg/dL; URIC ACID 6.6 mg/dL (2.6-7.2); VLDL CHOLESTEROL 46 mg/dL
[2021-12-17 12:24] LABS: CREATININE,URINE 123.3 mg/dL; MICROALBUM/CREATININE RATIO,UR 31.6 ug/mg (<30.0); MICROALBUMIN,URINE 3.9 mg/dL (0-300.0)
[2021-12-17 12:26] LABS: THYROID STIMULATING HORMONE 1.47 uIU/mL (0.34-5.60)
[2021-12-17 15:07] LABS: ESTIMATED AVERAGE GLUCOSE 157 mg/dL (70-100); HEMOGLOBIN A1c% 7.1 % (4.27-6.07)
== END 2021-12-17 23:59 | disposition home or self-care (01) ==
LOC: LAB.WCP 07:00
PROVIDERS: ATTEND Internal Medicine
DX: E11.9 Type 2 diabetes mellitus without complications (principal); Z12.5 Encounter for screening for malignant neoplasm of prostate; R00.0 Tachycardia, unspecified; E79.0 Hyperuricemia without signs of inflammatory arthritis and tophaceous disease; L03.116 Cellulitis of left lower limb
CPT/HCPCS: 36415; 80053; 80061; 82043; 82570; 83036; 84443; 84550; 85025; G0103; 83721; 84153

== ENCOUNTER 2021-12-25 10:22 | Outpatient (CLI) | payer MEDICARE ==
--- NOTE | 2021-12-25 11:50 | XRAY Report ---
PROCEDURE: Knee Standing AP View Only INDICATIONS: BILATERAL OSTEOARTHRITIS, KNEES TECHNIQUE: AP view of both knees was performed. COMPARISON: 07/06/2021, 11/12/2021 FINDINGS: There is medial joint space narrowing bilaterally, worse on the right. The right knee medi al compartment has subchondral sclerosis. The right knee lateral compartment has osteophytes. No frac ture or dislocation. IMPRESSION: Degenerative changes of both knees with medial joint space narrowing consistent with osteoarthritis. There is no significant change compared to prior x-rays. Reviewed by: Scooby Lowe on 12/25/2021 11:48 AM PST Approved by: Scooby Lowe on 12/25/2021 11:48 AM PST Station ID: [id number]
== END 2021-12-25 10:23 | disposition home or self-care (01) ==
LOC: DI.N 10:22
PROVIDERS: ATTEND Internal Medicine
DX: M17.0 Bilateral primary osteoarthritis of knee (principal)

== ENCOUNTER 2022-03-19 07:53 | Outpatient (CLI) | payer MEDICARE ==
[2022-03-19 12:38] LABS: BASOPHILS % (AUTO) 0.4 %; EOSINOPHILS # (AUTO) 0.3 10^3/uL (0.0-0.7); EOSINOPHILS % (AUTO) 3.6 %; HCT - HEMATOCRIT 46.1 % (42.0-52.0); HGB - HEMOGLOBIN 14.8 g/dL (14.0-18.0); LYMPHOCYTES % (AUTO) 25.7 %; MEAN CORPUSCULAR HEMOGLOBIN 29.7 pg (27.0-31.0); MEAN CORPUSCULAR HGB CONC 32.1 g/dL (32.0-36.0); MEAN CORPUSCULAR VOLUME 92.4 fL (80.0-94.0); MEAN PLATELET VOLUME 10.5 fL (7.4-11.4); MONOCYTES # (AUTO) 0.7 10^3/uL (0.0-1.0); MONOCYTES % (AUTO) 9.5 %; NEUTROPHILS # (AUTO) 4.6 10^3/uL (1.5-6.6); NEUTROPHILS % (AUTO) 60.4 %; PLT - PLATELET COUNT 191 10^3/uL (130-450); RED BLOOD COUNT 4.99 10^6/uL (4.70-6.10); RED CELL DISTRIBUTION WIDTH 13.9 % (12.0-15.0); WHITE BLOOD COUNT 7.6 x10^3/uL (4.8-10.8)
[2022-03-19 13:06] LABS: CREATININE,URINE 138.8 mg/dL; MICROALBUM/CREATININE RATIO,UR 51.2 ug/mg (<30.0); MICROALBUMIN,URINE 7.1 mg/dL (0-300.0)
[2022-03-19 13:20] LABS: ESTIMATED AVERAGE GLUCOSE 166 mg/dL (70-100); HEMOGLOBIN A1c% 7.4 % (4.27-6.07)
[2022-03-19 13:28] LABS: ALBUMIN/GLOBULIN RATIO 1.3 (1.0-2.2); ALKALINE PHOSPHATASE 55 IU/L (42-121); ALT ALANINE AMINOTRANSFERASE 33 IU/L (10-60); AST ASPARTATE AMINOTRANSFERASE 28 IU/L (10-42); BILIRUBIN,TOTAL 1.1 mg/dL (0.2-1.0); BUN - BLOOD UREA NITROGEN 29 mg/dL (6-20); CALCIUM 9.5 mg/dL (8.5-10.3); CARBON DIOXIDE - CO2 26 mmol/L (21-32); CHLORIDE 102 mmol/L (101-111); CHOL/HDL RATIO 2.9 (<5.0); CHOLESTEROL 132 mg/dL; CREATININE 1.4 mg/dL (0.6-1.2); GFR - MDRD 50 (>89); GLUCOSE 158 mg/dL (70-100); HDL CHOLESTEROL 45 mg/dL; LDL CHOLESTEROL,CALCULATED 27 mg/dL; LDL/HDL RATIO 0.6 (<3.6); POTASSIUM 4.5 mmol/L (3.5-5.0); SODIUM 138 mmol/L (135-145); TRIGLYCERIDES 301 mg/dL; VLDL CHOLESTEROL 60 mg/dL
== END 2022-03-19 07:54 | disposition home or self-care (01) ==
LOC: LAB.N 07:53
PROVIDERS: ATTEND Internal Medicine
DX: E11.42 Type 2 diabetes mellitus with diabetic polyneuropathy (principal); I25.2 Old myocardial infarction
CPT/HCPCS: 36415; 80053; 80061; 82043; 82570; 83036; 83721; 85025

== ENCOUNTER 2022-03-22 10:34 | Outpatient (CLI) | payer MEDICARE ==
--- NOTE | 2022-03-22 16:33 | XRAY Report ---
PROCEDURE: Chest 1 View X-Ray INDICATIONS: CLEAR CELL RENAL CELL CARCINOMA TECHNIQUE: One view of the chest was acquired. COMPARISON: Lung bases on CT 02/28/2022. FINDINGS: Surgical changes and devices: None. Lungs and pleura: No pleural effusions or pneumothorax. Lungs appear clear. No mass demonstrated. Mediastinum: Mediastinal contours appear normal. Heart size is normal. Bones and chest wall: No suspicious bony lesions. Overlying soft tissues appear unremarkable. IMPRESSION: No mass demonstrated. Reviewed by: Andrae Khalil MD on 03/22/2022 4:32 PM PDT Approved by: Andrae Khalil MD on 03/22/2022 4:32 PM PDT Station ID: [id number]
== END 2022-03-22 10:35 | disposition home or self-care (01) ==
LOC: DI.N 10:34
PROVIDERS: ATTEND Physician Assistant Medical
DX: C64.1 Malignant neoplasm of right kidney, except renal pelvis (principal)

== ENCOUNTER 2023-03-05 09:17 | Outpatient (CLI) | payer MEDICARE ==
--- NOTE | 2023-03-05 09:46 | XRAY Report ---
PROCEDURE: Chest 1 View X-Ray INDICATIONS: RENAL CELL CARCINOMA TECHNIQUE: One view of the chest was acquired. COMPARISON: None. FINDINGS: Surgical changes and devices: None. Lungs and pleura: No pleural effusions or pneumothorax. Lungs are clear. Mediastinum: Mediastinal contours appear normal. Heart size is normal. Bones and chest wall: No suspicious bony lesions. Overlying soft tissues appear unremarkable. IMPRESSION: No acute cardiopulmonary process. Reviewed by: Scooby Lowe on 03/05/2023 9:44 AM PDT Approved by: Scooby Lowe on 03/05/2023 9:44 AM PDT Station ID: [id number]
== END 2023-03-05 09:18 | disposition home or self-care (01) ==
LOC: DI 09:17
PROVIDERS: ATTEND Physician Assistant Medical
DX: C64.1 Malignant neoplasm of right kidney, except renal pelvis (principal)

== ENCOUNTER 2023-03-28 08:22 | Outpatient (CLI) | payer MEDICARE ==
[2023-03-28 11:40] LABS: BASOPHILS % (AUTO) 0.6 %; EOSINOPHILS # (AUTO) 0.2 10^3/uL (0.0-0.7); EOSINOPHILS % (AUTO) 2.4 %; HGB - HEMOGLOBIN 15.1 g/dL (14.0-18.0); LYMPHOCYTES % (AUTO) 28.9 %; MEAN CORPUSCULAR HEMOGLOBIN 30.4 pg (27.0-31.0); MEAN CORPUSCULAR HGB CONC 31.5 g/dL (32.0-36.0); MEAN CORPUSCULAR VOLUME 96.8 fL (80.0-94.0); MEAN PLATELET VOLUME 10.5 fL (7.4-11.4); MONOCYTES # (AUTO) 0.7 10^3/uL (0.0-1.0); MONOCYTES % (AUTO) 9.7 %; NEUTROPHILS # (AUTO) 4.1 10^3/uL (1.5-6.6); NEUTROPHILS % (AUTO) 58.3 %; PLT - PLATELET COUNT 174 10^3/uL (130-450); RED BLOOD COUNT 4.96 10^6/uL (4.70-6.10); RED CELL DISTRIBUTION WIDTH 13.9 % (12.0-15.0)
[2023-03-28 12:01] LABS: ALBUMIN 3.9 g/dL (3.2-5.5); ALBUMIN/GLOBULIN RATIO 1.3 (1.0-2.2); ALKALINE PHOSPHATASE 57 IU/L (42-121); ALT ALANINE AMINOTRANSFERASE 28 IU/L (10-60); AST ASPARTATE AMINOTRANSFERASE 24 IU/L (10-42); BUN - BLOOD UREA NITROGEN 27 mg/dL (6-20); CALCIUM 9.2 mg/dL (8.5-10.3); CARBON DIOXIDE - CO2 28 mmol/L (21-32); CHLORIDE 107 mmol/L (101-111); CHOL/HDL RATIO 2.7 (<5.0); CHOLESTEROL 123 mg/dL; CREATININE 1.5 mg/dL (0.6-1.2); GFR - MDRD 46 (>89); GLUCOSE 150 mg/dL (70-100); HDL CHOLESTEROL 45 mg/dL; LDL CHOLESTEROL,CALCULATED 34 mg/dL; LDL/HDL RATIO 0.8 (<3.6); POTASSIUM 4.6 mmol/L (3.5-5.0); SODIUM 141 mmol/L (135-145); TOTAL PROTEIN 6.8 g/dL (6.7-8.2); TRIGLYCERIDES 222 mg/dL; VLDL CHOLESTEROL 44 mg/dL
[2023-03-28 12:07] LABS: MICROALBUM/CREATININE RATIO,UR 55.6 ug/mg (<30.0); MICROALBUMIN,URINE 9.4 mg/dL (0-300.0)
[2023-03-28 12:21] LABS: ESTIMATED AVERAGE GLUCOSE 169 mg/dL (70-100); HEMOGLOBIN A1c% 7.5 % (4.27-6.07)
== END 2023-03-28 08:23 | disposition home or self-care (01) ==
LOC: LAB.N 08:22
PROVIDERS: ATTEND Internal Medicine
DX: E11.42 Type 2 diabetes mellitus with diabetic polyneuropathy (principal); I25.2 Old myocardial infarction; Z12.5 Encounter for screening for malignant neoplasm of prostate
CPT/HCPCS: 36415; 80053; 80061; 82043; 82570; 83036; 85025; G0103; 83721; 84153

== ENCOUNTER 2023-03-31 09:59 | Outpatient (CLI) | payer MEDICARE ==
[2023-03-31] MEDS ORDERED: iohexoL-300 100 ML VIAL ONE ×2 (10:08)
[2023-03-31 10:47] LABS: CREATININE 1.7 mg/dL (0.6-1.2)
[2023-03-31] MEDS ORDERED: iohexoL-300 100 ML VIAL IVP ONE (10:54)
--- NOTE | 2023-03-31 13:11 | CT Report ---
PROCEDURE: ABDOMEN W/WO INDICATIONS: RENAL CELL CARCINOMA CONTRAST: 140ml Omnipaque 300 Comparison: 02/28/2022, 08/15/2021, 12/20/2020 TECHNIQUE: 4 phase scanning was performed. After the administration of intravenous contrast, 5 mm thick section s acquired from the diaphragm to the symphysis. 5 mm coronal and sagittal reformats were acquired. For radiation dose reduction, the following was used: automated exposure control, adjustment of mA a nd/or kV according to patient size. FINDINGS: Image quality: Excellent. Lung bases and heart: No suspicious lesions. Minor right base atelectatic change. Mild to moderate co ronary artery calcification. No hiatal hernia. Liver: Minor hepatic steatosis. No masses. Gallbladder and biliary tree: No stones or wall thickening. Nondilated biliary tree. Spleen: No splenomegaly. Pancreas: No pancreatic ductal dilation. Adrenals: No adrenal nodule. Kidneys and ureters: Surgical changes of partial right nephrectomy. Loss of lateral lower pole cortex . Nonenhancing wispy soft tissue is seen in the nephrectomy bed along with a 1.4 cm ovoid soft tissue nodule which has not significantly changed since the initial post resection exam. Other nonenhancing left renal cysts are present. No hydronephrosis. Bowel and peritoneum: Stomach is decompressed. The visible bowel loops and appendix are within normal limits. Lymph nodes: No central or retroperitoneal adenopathy. Vessels: No infrarenal aortic aneurysm. Bones: No aggressive osseous abnormality. Other: No significant ventral hernia. IMPRESSION: 1. Stable surgical changes of right partial nephrectomy with small areas of nonenhancing wispy tissue in the resection bed as described, fairly stable. Continued attention to this area on follow-up exam s is recommended. 2. No adenopathy or evidence of metastatic disease in the visible soft tissues or osseous structures. Reviewed by: Emily Birmingham MD on 03/31/2023 1:09 PM PDT Approved by: Emily Birminghma MD on 03/31/2023 1:09 PM PDT Station ID: [id number]
== END 2023-03-31 10:00 | disposition home or self-care (01) ==
LOC: DI 09:59
PROVIDERS: ATTEND Physician Assistant Medical
DX: C64.1 Malignant neoplasm of right kidney, except renal pelvis (principal); Z90.5 Acquired absence of kidney
CPT/HCPCS: 36415; 74170; 82565; 84520; Q9967

== ENCOUNTER 2023-08-11 08:07 | Outpatient (CLI) | payer MEDICARE ==
[2023-08-11 12:33] LABS: BASOPHILS % (AUTO) 0.4 %; EOSINOPHILS # (AUTO) 0.1 10^3/uL (0.0-0.7); EOSINOPHILS % (AUTO) 2.5 %; HCT - HEMATOCRIT 49.2 % (42.0-52.0); HGB - HEMOGLOBIN 15.8 g/dL (14.0-18.0); LYMPHOCYTES # (AUTO) 1.8 10^3/uL (1.5-3.5); LYMPHOCYTES % (AUTO) 32.1 %; MEAN CORPUSCULAR HGB CONC 32.1 g/dL (32.0-36.0); MEAN CORPUSCULAR VOLUME 96.5 fL (80.0-94.0); MEAN PLATELET VOLUME 10.8 fL (7.4-11.4); MONOCYTES # (AUTO) 0.6 10^3/uL (0.0-1.0); MONOCYTES % (AUTO) 10.2 %; NEUTROPHILS # (AUTO) 3.1 10^3/uL (1.5-6.6); NEUTROPHILS % (AUTO) 54.6 %; PLT - PLATELET COUNT 166 10^3/uL (130-450); RED CELL DISTRIBUTION WIDTH 13.6 % (12.0-15.0); WHITE BLOOD COUNT 5.7 x10^3/uL (4.8-10.8)
[2023-08-11 12:49] LABS: ALBUMIN 4.2 g/dL (3.2-5.5); ALBUMIN/GLOBULIN RATIO 1.8 (1.0-2.2); BILIRUBIN,TOTAL 0.8 mg/dL (0.2-1.0); CALCIUM 9.7 mg/dL (8.5-10.3); CREATININE 1.3 mg/dL (0.6-1.3); POTASSIUM 4.3 mmol/L (3.5-4.5); TOTAL PROTEIN 6.6 g/dL (6.4-8.9); URIC ACID 4.8 mg/dL (4.4-7.6)
[2023-08-11 13:37] LABS: MICROALBUM/CREATININE RATIO,UR 47.7 ug/mg (<30.0); MICROALBUMIN,URINE 4.1 mg/dL
[2023-08-11 14:12] LABS: ESTIMATED AVERAGE GLUCOSE 148 mg/dL (70-100); HEMOGLOBIN A1c% 6.8 % (4.27-6.07)
== END 2023-08-11 08:08 | disposition home or self-care (01) ==
LOC: LAB.N 08:07
PROVIDERS: ATTEND Internal Medicine
DX: E11.42 Type 2 diabetes mellitus with diabetic polyneuropathy (principal); E79.0 Hyperuricemia without signs of inflammatory arthritis and tophaceous disease; I25.5 Ischemic cardiomyopathy
CPT/HCPCS: 36415; 80053; 82043; 82570; 83036; 84550; 85025

== ENCOUNTER 2023-09-17 10:11 | Outpatient (CLI) | payer MEDICARE ==
[2023-09-17 10:23] LABS: BASOPHILS % (AUTO) 0.3 %; EOSINOPHILS # (AUTO) 0.1 10^3/uL (0.0-0.7); EOSINOPHILS % (AUTO) 1.9 %; HCT - HEMATOCRIT 45.7 % (42.0-52.0); HGB - HEMOGLOBIN 14.6 g/dL (14.0-18.0); LYMPHOCYTES # (AUTO) 1.7 10^3/uL (1.5-3.5); LYMPHOCYTES % (AUTO) 22.6 %; MEAN CORPUSCULAR HEMOGLOBIN 30.7 pg (27.0-31.0); MEAN CORPUSCULAR HGB CONC 31.9 g/dL (32.0-36.0); MEAN CORPUSCULAR VOLUME 96.2 fL (80.0-94.0); MEAN PLATELET VOLUME 9.5 fL (7.4-11.4); MONOCYTES # (AUTO) 0.5 10^3/uL (0.0-1.0); NEUTROPHILS # (AUTO) 5.2 10^3/uL (1.5-6.6); NEUTROPHILS % (AUTO) 68.8 %; PLT - PLATELET COUNT 179 10^3/uL (130-450); RED BLOOD COUNT 4.75 10^6/uL (4.70-6.10); RED CELL DISTRIBUTION WIDTH 13.4 % (12.0-15.0); WHITE BLOOD COUNT 7.5 x10^3/uL (4.8-10.8)
[2023-09-17 10:25] LABS: BILIRUBIN,URINE NEGATIVE (NEGATIVE); GLUCOSE, URINE (UA) >=1000 mg/dL (NEGATIVE); KETONES,URINE (UA) NEGATIVE (NEGATIVE); LEUKOCYTE ESTERASE, URINE NEGATIVE (NEGATIVE); NITRITE,URINE NEGATIVE (NEGATIVE); OCCULT BLOOD,URINE SMALL (NEGATIVE); PH,URINE 5.5 PH (5.0-7.5); PROTEIN,URINE NEGATIVE (NEGATIVE); UROBILINOGEN,URINE 0.2 (NORMAL) E.U./dL (NORMAL)
[2023-09-17 10:38] LABS: CALCIUM 9.6 mg/dL (8.5-10.3); CREATININE 1.6 mg/dL (0.6-1.3); POTASSIUM 4.3 mmol/L (3.5-4.5)
[2023-09-17 10:38] LABS: BACTERIA,URINE None Seen /HPF (None Seen); CLARITY,URINE CLEAR (CLEAR); RBC,URINE None Seen /HPF (0-5); SQUAMOUS EPITHELIAL CELL,UR NONE SEEN (<= Few); WBC,URINE 0-3 /HPF (0-3)
[2023-09-17 10:50] LABS: ESTIMATED AVERAGE GLUCOSE 160 mg/dL (70-100); HEMOGLOBIN A1c% 7.2 % (4.27-6.07)
== END 2023-09-17 10:12 | disposition home or self-care (01) ==
LOC: LAB 10:11
PROVIDERS: ATTEND Orthopaedic Surgery
DX: Z01.818 Encounter for other preprocedural examination (principal); R73.9 Hyperglycemia, unspecified; N39.0 Urinary tract infection, site not specified
CPT/HCPCS: 36415; 80048; 81001; 83036; 85025; 87086; 93005

== ENCOUNTER 2023-11-28 08:41 | Outpatient (CLI) | payer MEDICARE ==
[2023-11-28 08:49] LABS: BASOPHILS % (AUTO) 0.4 %; EOSINOPHILS # (AUTO) 0.1 10^3/uL (0.0-0.7); EOSINOPHILS % (AUTO) 1.9 %; HCT - HEMATOCRIT 51.5 % (42.0-52.0); HGB - HEMOGLOBIN 16.3 g/dL (14.0-18.0); LYMPHOCYTES # (AUTO) 2.3 10^3/uL (1.5-3.5); LYMPHOCYTES % (AUTO) 31.4 %; MEAN CORPUSCULAR HEMOGLOBIN 30.1 pg (27.0-31.0); MEAN CORPUSCULAR HGB CONC 31.7 g/dL (32.0-36.0); MEAN CORPUSCULAR VOLUME 95.2 fL (80.0-94.0); MEAN PLATELET VOLUME 9.8 fL (7.4-11.4); MONOCYTES # (AUTO) 0.7 10^3/uL (0.0-1.0); MONOCYTES % (AUTO) 9.4 %; NEUTROPHILS # (AUTO) 4.1 10^3/uL (1.5-6.6); NEUTROPHILS % (AUTO) 56.6 %; PLT - PLATELET COUNT 171 10^3/uL (130-450); RED BLOOD COUNT 5.41 10^6/uL (4.70-6.10); RED CELL DISTRIBUTION WIDTH 13.8 % (12.0-15.0); WHITE BLOOD COUNT 7.3 x10^3/uL (4.8-10.8)
[2023-11-28 09:04] LABS: ALBUMIN 4.2 g/dL (3.2-5.5); BILIRUBIN,TOTAL 0.8 mg/dL (0.2-1.0); CALCIUM 9.3 mg/dL (8.5-10.3); CREATININE 1.3 mg/dL (0.6-1.3); POTASSIUM 4.4 mmol/L (3.5-4.5); TOTAL PROTEIN 6.8 g/dL (6.4-8.9)
[2023-11-28 09:05] LABS: ALBUMIN/GLOBULIN RATIO 1.6 (1.0-2.2)
[2023-11-28 11:53] LABS: ESTIMATED AVERAGE GLUCOSE 174 mg/dL (70-100); HEMOGLOBIN A1c% 7.7 % (4.27-6.07)
== END 2023-11-28 08:42 | disposition home or self-care (01) ==
LOC: LAB 08:41
PROVIDERS: ATTEND Internal Medicine
DX: I25.5 Ischemic cardiomyopathy (principal); E11.42 Type 2 diabetes mellitus with diabetic polyneuropathy
CPT/HCPCS: 36415; 80053; 83036; 85025

== ENCOUNTER 2024-03-13 07:58 | Outpatient (CLI) | payer MEDICARE ==
[2024-03-13 08:32] LABS: CALCIUM 9.7 mg/dL (8.5-10.3); CREATININE 1.3 mg/dL (0.6-1.3); POTASSIUM 4.3 mmol/L (3.5-4.5)
[2024-03-13 11:44] LABS: ESTIMATED AVERAGE GLUCOSE 174 mg/dL (70-100); HEMOGLOBIN A1c% 7.7 % (4.27-6.07)
== END 2024-03-13 07:59 | disposition home or self-care (01) ==
LOC: LAB 07:58
PROVIDERS: ATTEND Internal Medicine
DX: E11.42 Type 2 diabetes mellitus with diabetic polyneuropathy (principal)
CPT/HCPCS: 36415; 80048; 83036

== ENCOUNTER 2024-05-03 12:25 | Outpatient (CLI) | payer MEDICARE ==
--- NOTE | 2024-05-03 15:04 | XRAY Report ---
PROCEDURE: Chest 1V INDICATIONS: CLEAR CELL RENAL CA TECHNIQUE: One view of the chest was acquired. COMPARISON: Chest x-ray, 03/05/2023. FINDINGS: Surgical changes and devices: None. Lungs and pleura: Diffuse interstitial prominence. No pleural effusions or pneumothorax. Lungs are clear. Mediastinum: Mediastinal contours appear normal. Heart size is normal. Bones and chest wall: No suspicious bony lesions. Overlying soft tissues appear unremarkable. IMPRESSION: 1. No acute cardiopulmonary process. 2. Diffuse interstitial prominence suggesting chronic interstitial lung disease. Consider high-resolu tion chest CT for further evaluation if clinically indicated. Reviewed by: Anna Lopez MD on 05/03/2024 2:03 PM [id number] Approved by: Anna Lopez MD on 05/03/2024 2:03 PM [id number] Station ID: [id number]
== END 2024-05-03 12:26 | disposition home or self-care (01) ==
LOC: DI 12:25
PROVIDERS: ATTEND Physician Assistant Medical
DX: R91.8 Other nonspecific abnormal finding of lung field (principal); C64.1 Malignant neoplasm of right kidney, except renal pelvis

== ENCOUNTER 2024-05-17 08:29 | Outpatient (CLI) | payer MEDICARE ==
[2024-05-17 09:04] LABS: CREATININE 1.4 mg/dL (0.6-1.3)
[2024-05-17] MEDS: iohexoL-300 100 ML VIAL IVP ONE (09:41)
[2024-05-17] MEDS: iohexoL-300 150 ML BOTTLE IVP ONE (12:46)
--- NOTE | 2024-05-17 14:27 | CT Report ---
PROCEDURE: Abdomen W/WO INDICATIONS: RENAL CELL CARCINOMA CONTRAST: Omni 300 140ml TECHNIQUE: After the administration of intravenous contrast, 5 mm thick sections acquired from the diaphragm to the symphysis. 5 mm coronal and sagittal reformats were acquired. For radiation dose reduction, the following was used: automated exposure control, adjustment of mA and/or kV according to patient siz e. COMPARISON: 04/12/2023, 02/28/2022 FINDINGS: Image quality: Excellent. Genitourinary: Surgical changes of right lateral lower pole partial nephrectomy. There is nodular an d wispy soft tissue adjacent to the surgical site without significant growth or enhancement. Multi se ptated cystic changes are present in the upper pole left kidney, stable. No enhancing mass. No hydron ephrosis or nephrolithiasis. Visible portions of the ureters are normal. OTHER: Lung bases and heart: Slight bibasilar fibrosis. No basal effusions. No hiatal hernia. Partially imag ed coronary artery calcification. Liver: No solid mass. Gallbladder and biliary tree: No radiopaque stones or wall thickening. No biliary dilation. Spleen: No splenomegaly. Pancreas: No pancreatic ductal dilation. Adrenals: No adrenal nodule. Bowel and peritoneum: Stomach and visible bowel loops are normal. Partially imaged normal appendix. Lymph nodes: No central or retroperitoneal adenopathy. Vessels: No infrarenal aortic aneurysm. Bones: No suspicious expansile bony lesions. Degenerative superior endplate changes at L3. Other: No significant ventral hernia. IMPRESSION: Stable postsurgical changes of right partial nephrectomy without evidence of recurrent disease. No evidence of contralateral disease or adenopathy. Reviewed by: Emily Birmingham MD on 05/17/2024 2:26 PM PDT Approved by: Emily Birmingham MD on 05/17/2024 2:26 PM PDT Station ID: [id number]
== END 2024-05-17 08:30 | disposition home or self-care (01) ==
LOC: LAB 08:29
PROVIDERS: ATTEND Physician Assistant Medical
DX: C64.1 Malignant neoplasm of right kidney, except renal pelvis (principal); Z90.5 Acquired absence of kidney
CPT/HCPCS: 36415; 82565

== ENCOUNTER 2024-08-13 09:05 | Outpatient (CLI) | payer MEDICARE ==
[2024-08-13 09:26] LABS: BASOPHILS % (AUTO) 0.4 %; EOSINOPHILS # (AUTO) 0.2 10^3/uL (0.0-0.7); EOSINOPHILS % (AUTO) 2.7 %; HCT - HEMATOCRIT 49.4 % (42.0-52.0); HGB - HEMOGLOBIN 15.8 g/dL (14.0-18.0); LYMPHOCYTES # (AUTO) 2.2 10^3/uL (1.5-3.5); LYMPHOCYTES % (AUTO) 32.1 %; MEAN CORPUSCULAR HEMOGLOBIN 31.3 pg (27.0-31.0); MEAN CORPUSCULAR VOLUME 97.8 fL (80.0-94.0); MEAN PLATELET VOLUME 10.2 fL (7.4-11.4); MONOCYTES # (AUTO) 0.6 10^3/uL (0.0-1.0); MONOCYTES % (AUTO) 9.2 %; NEUTROPHILS # (AUTO) 3.8 10^3/uL (1.5-6.6); NEUTROPHILS % (AUTO) 55.3 %; PLT - PLATELET COUNT 164 10^3/uL (130-450); RED BLOOD COUNT 5.05 10^6/uL (4.70-6.10); RED CELL DISTRIBUTION WIDTH 14.4 % (12.0-15.0); WHITE BLOOD COUNT 6.8 x10^3/uL (4.8-10.8)
[2024-08-13 09:49] LABS: ALBUMIN 4.2 g/dL (3.2-5.5); ALBUMIN/GLOBULIN RATIO 1.9 (1.0-2.2); ALKALINE PHOSPHATASE 76 IU/L (42-121); ALT ALANINE AMINOTRANSFERASE 29 IU/L (10-60); AST ASPARTATE AMINOTRANSFERASE 22 IU/L (10-42); BILIRUBIN,TOTAL 0.9 mg/dL (0.2-1.0); BUN - BLOOD UREA NITROGEN 23 mg/dL (6-20); CALCIUM 9.5 mg/dL (8.5-10.3); CARBON DIOXIDE - CO2 26 mmol/L (21-32); CHLORIDE 107 mmol/L (101-111); CHOLESTEROL 125 mg/dL; CREATININE 1.4 mg/dL (0.6-1.3); GFR - MDRD 50 (>89); GLUCOSE 167 mg/dL (74-104); HDL CHOLESTEROL 41 mg/dL; LDL CHOLESTEROL,CALCULATED 17 mg/dL; LDL/HDL RATIO 0.4 (<3.6); POTASSIUM 4.2 mmol/L (3.5-4.5); SODIUM 140 mmol/L (135-145); TOTAL PROTEIN 6.4 g/dL (6.4-8.9); TRIGLYCERIDES 337 mg/dL; URIC ACID 5.3 mg/dL (4.4-7.6); VLDL CHOLESTEROL 67 mg/dL
[2024-08-13 09:50] LABS: CREATININE,URINE 103.2 mg/dL; MICROALBUMIN,URINE 3.3 mg/dL
[2024-08-13 11:01] LABS: ESTIMATED AVERAGE GLUCOSE 171 mg/dL (70-100); HEMOGLOBIN A1c% 7.6 % (4.27-6.07)
== END 2024-08-13 09:06 | disposition home or self-care (01) ==
LOC: LAB 09:05
PROVIDERS: ATTEND Internal Medicine
DX: E11.42 Type 2 diabetes mellitus with diabetic polyneuropathy (principal); E78.5 Hyperlipidemia, unspecified; E79.0 Hyperuricemia without signs of inflammatory arthritis and tophaceous disease; I25.5 Ischemic cardiomyopathy; Z12.5 Encounter for screening for malignant neoplasm of prostate
CPT/HCPCS: 36415; 80053; 80061; 82043; 82570; 83036; 84550; 85025; G0103; 83721; 84153